=== PATIENT | female | born 1995 | race Caucasian/White ===

== ENCOUNTER → 2023-06-26 | Outpatient (CLI) | payer OTHER ==
[~2023-06-26] MED LIST: ONDA4ODT MM; PROM12.5S PR
[2023-06-27 14:39] LABS: Candida species (DNA Probe) Negative (NEGATIVE); G. vaginalis (DNA Probe) Positive (NEGATIVE); T. vaginalis (DNA Probe) Negative (NEGATIVE)
== END ==
LOC: LAB 15:03 → LAB SHORT 15:03
PROVIDERS: Advanced Practice Midwife
DX: N76.0 Acute vaginitis (principal)
CPT/HCPCS: 87480; 87510; 87660; G0145